=== PATIENT | female | born 1940 ===

== ENCOUNTER 2024-11-26 08:46 | Outpatient (AMB) | payer OTHER, SELFPAY ==
--- NOTE | 2024-11-26 09:06 | MHC.OFFVIS ---
Intake Visit Reasons: 6 month AD Accompanied by: Spouse Allergies Penicillins Allergy (Unknown, Verified 11/26/24 09:07) Unknown Medication List - Last Reconciled 11/26/24 by Brittany Kapadia CNP atorvastatin 40 mg PO DAILY bimatoprost 0.01% (Lumigan) 1 drp ophthalmic (eye) BEDTIME brimonidine 0.1% 1 drp ophthalmic (eye) BID celecoxib 200 mg PO DAILY PRN cetirizine 10 mg PO QPM donepezil 10 mg PO BEDTIME dorzolamide-timolol 22.3-6.8 mg/mL 1 drp ophthalmic (eye) BID dulaglutide (Trulicity) 1.5 mg subcut QWEEK fluticasone propionate 50 mcg/actuation 2 sprays intranasal BEDTIME latanoprostene bunod 0.024% (Vyzulta) 1 drp ophthalmic (eye) BEDTIME metoprolol tartrate 100 mg PO BID nifedipine ER 60 mg PO DAILY HPI Comments Details: She was doing okay. Her noted that she was more forgetful, forgetting where things are in the house. She says her memory comes and goes. She was still doing all the pantry cook, like cooking and cleaning. Sleep was okay. Going for walks, no falls. Her medications were organized by her . She reports deterioration in her memory since around 2021, where she repeats herself and asks the same questions over and over again, and does not keep track of time. Has trouble with bills starting around 2023. She was aware of her memory loss, but still functions fairly well at home doing her pantry cook, cooking and cleaning. She never drove. She has a high school education, but did not go to college. 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 She has been since 1965 and have two adopted sons. [facility] Medical History (Updated 11/26/24 @ 09:12 by Brittany Kapadia CNP) Blindness of right eye Surgical History (Updated 11/26/24 @ 09:13 by rBittany Kapadia CNP) LAP-BAND surgery status Review of Systems Const Denies chills, Denies daytime sleepiness, Denies difficulty sleeping, Denies fatigue, Denies fever(s), Denies frequent falls, Denies headache(s), Denies increased appetite, Denies poor appetite, Denies snoring, Denies weakness, Denies weight gain and Denies weight loss Eyes Denies loss of vision ENT Denies vertigo, Denies dizziness, Denies headache(s) and Denies neck pain Card Denies chest pain at rest, Denies chest pain with activity, Denies syncope, Denies leg edema, Denies palpitations, Denies dyspnea and Denies dyspnea on exertion Resp Denies cough, Denies dyspnea, Denies dyspnea on exertion and Denies snoring GI Denies abdominal pain, Denies constipation, Denies heartburn, Denies diarrhea and Denies nausea Denies urinary frequency, Denies urinary incontinence and Denies urinary urgency Musc Reports abnormal gait (balance difficulty), Denies back pain, Denies myalgias, Denies arthralgias, Denies neck pain, Denies numbness and Denies tingling Neuro Reports abnormal gait (balance difficulty), Denies vertigo, Denies dizziness, Denies syncope, Denies frequent falls, Denies headache(s), Denies lack of coordination, Denies loss of vision, Reports memory loss, Denies numbness, Denies Other visual disturbances, Denies restless legs, Denies seizure-like activity, Denies tingling, Denies paresthesias, Denies tremor(s) and Denies weakness Psych Denies anxiety, Denies depression, Denies auditory hallucinations, Reports memory loss and Denies visual hallucinations Endo Denies fatigue and Denies palpitations Physical Exam Const Other: General Appearance:? normal, in no acute distress. Heart:? S1, S2 normal, no murmurs. Lungs:? clear anteriorly and posteriorly. Musculoskeletal:? normal. Extremities:? no edema. Psych:? alert, as below. Neuro Other: Abnormal Neurological Findings:?MMSE 19/30. Blind in R eye. Mental Status: alert, as below. Cranial Nerves: Pupils are equal, round, and reactive to light. External ocular muscles are intact. Visual brar are full, no ptosis. Face is symmetrical, no facial weakness or droop. Facial sensations are normal. Tongue protrudes in midline. Palate elevates symmetrically. Shoulder shrugging is normal Motor Examination: Normal muscle tone, bulk and strength. No atrophy or fasciculations. No drift of the extended upper extremities. DTR 2+. Plantars are flexor. Sensory Exam: Normal light touch, temperature, pinprick, vibration, and joint-position sensations. Rhomberg sign is absent. Coordination: No ataxia. No titubation. Gait Exam: Within normal limits. Cerebellar Signs: Hukakk-to-[id number] is okay. Extrapyramidal System: No tremor, rigidity with normal facial expressions. No bradykinesia. No bradyphrenia. Normal arm swing and posture. No propulsion or retropulsion. Speech: Normal. MMSE Level of Consciousness: Alert. Orientation: Knows correct day and season. Does not know year, month, or date. Knows correct city and state. Does not know county. Knows correct location and floor. Registration: Able to register 3 objects. Attention: Unable to do serial 7's. Recall: Able to recall 0 out of 3 objects. Language: Normal spontaneous speech, fluency, repetition, naming, comprehension, reading, and writing. Total Score: 19/30. Results Reviewed Results Reviewed: CT Brain 08/2023: Mild to mod cerebral volume loss EEG 08/2023: WNL Labs normal except borderline TSH of 5.3 Assessment & Plan Assessment & Plan (1) Alzheimer dementia: Code(s): G30.9 - Alzheimer's disease, unspecified; F02.80 - Dementia in other diseases classified elsewhere, unspecified severity, without behavioral disturbance, psychotic disturbance, mood disturbance, and anxiety Category: Medical Qualifiers: Alzheimer's disease onset: unspecified onset Dementia severity: unspecified severity Dementia behavioral or psychological symptom: unspecified whether behavioral, psychotic, or mood disturbance or anxiety Qualified Code(s): G30.9 - Alzheimer's disease, unspecified; F02.80 - Dementia in other diseases classified elsewhere, unspecified severity, without behavioral disturbance, psychotic disturbance, mood disturbance, and anxiety Plan: Continue donepezil 10mg 1 tablet at bedtime. Start memantine 5mg 1 tablet twice a day, use/side effects reviewed. Stay physically and socially active. Medications: New donepezil 10 mg PO BEDTIME 90 tabs 1RF 90 days memantine (Namenda) 5 mg PO BID 180 tabs 0RF 90 days Coding Level of Care Code Est Pt Level 4 (71269) Diagnoses Alzheimer's dementia, unspecified dementia severity, unspecified timing of dementia onset, unspecified whether behavioral, psychotic, or mood disturbance or anxiety G30.9; F02.80 Alzheimer's disease onset: unspecified onset Dementia severity: unspecified severity Dementia behavioral or psychological symptom: unspecified whether behavioral, psychotic, or mood disturbance or anxiety
--- OUTSIDE RECORDS SUMMARY | 2024-11-26 10:09 | XMS_ITS | Clinical Summary ---
Author Organization [facility] Address [address] [place] [address] Care Team Providers Care Director Of Community Life Name Role Phone Sallie Sanchez Primary Care Provider Allergies No known active allergies Medications Medication Sig Dispensed Refills Start Date End Date Status atorvastatin (LIPITOR) tablet 80 mg Take 80 mg by mouth daily. 0 01/26/2021 Active Alphagan P 0.1 % SOLN INSTILL 1 DROP INTO BOTH EYES TWICE DAILY DIRECTED 0 01/17/2021 Active Calcium Carbonate 1500 (600 Ca) MG TABS Take 1 tablet by mouth 2 (two) times a day with meals. 0 02/17/2021 Active Cholecalciferol (Vitamin D3) 50 MCG (2000 UT) capsule Take by mouth daily. 0 01/26/2021 Active Diclofenac Sodium 1 % GEL APPLY 4 GRAMS TOPICALLY TO THE AFFECTED AREA TWICE DAILY 0 12/16/2020 Active dorzolamide-timolol (COSOPT) 22.3-6.8 MG/ML ophthalmic solution INSTILL 1 DROP INTO BOTH EYES TWICE DAILY DIRECTED 0 02/13/2021 Active Trulicity 0.75 MG/0.5ML subcutaneous pen-injector ADMINISTER 0.75 MG UNDER THE SKIN EVERY 7 DAYS 0 01/26/2021 Active Xelpros 0.005 % EMUL INSTILL 1 DROP DAILY IN EACH EYE AT BEDTIME DIRECTED 0 01/05/2021 Active metoprolol tartrate (LOPRESSOR) 100 MG tablet Take 100 mg by mouth 2 (two) times a day. 0 01/26/2021 Active loratadine (CLARITIN) 10 MG tablet Take 10 mg by mouth daily. 0 02/08/2021 Active NIFEdipine ER (ADALAT CC) 60 MG 24 hr tablet 0 12/20/2020 Active warfarin (COUMADIN) 2.5 MG tablet 0 12/08/2020 Active Active Problems Problem Noted Date Diagnosed Date Anemia, unspecified 03/05/2021 Chronic kidney disease, stage IV (severe) 2020 Asthma Atrial fibrillation Glaucoma Osteoarthritis Hypertension Type 2 diabetes mellitus Vitamin D deficiency Family History Medical History Relation Name Comments Diabetes Brother Cancer Father Cancer Sister Diabetes Sister Stroke Sister Relation Name Status Comments Brother Father Sister Social History Tobacco Use Types Packs/Day Years Used Date Smoking Tobacco: Former Cigarettes Q uit: 1995 Smokeless Tobacco: Never Alcohol Use Standard Drinks/Week Comments Yes 0 (1 standard drink = 0.6 oz pur e alcohol) occasional Sex and Gender Information Value Date Recorded Sex Assigned at Not on file Gender Identity Not on file Sexual Orientation Not on file Last Filed Vital Signs Vital Sign Reading Time Taken Comments Blood Pressure 106/61 04/16/2021 9:50 AM EST Pulse 84 04/16/2021 9:50 AM EST Temperature 36.5 C (97.7 F) 04/16/2021 9:50 AM EST Respiratory Rate - - Oxygen Saturation 100% 04/16/2021 9:50 AM EST Inhaled Oxygen Concentration - - Weight 64.7 kg (142 lb 9.6 oz) 04/16/2021 9:50 A M EST Height 152.4 cm (5') 04/16/2021 9:50 AM EST Body Mass Index 27.85 04/16/2021 9:50 AM EST Plan of Treatment Health Maintenance Due Date Last Done Comments COVID-19 Vaccine (#1) 1941 Pneumococcal Vaccine (1 of 2 - PCV) 1947 Depression Screening 1953 Preventative Health Evaluation 1959 DTap / Tdap / Td (1 - Tdap) 1960 Shingrix-Zoster Vaccine (1 of 2) 1991 Fall Risk Assessment 2006 Osteoporosis Screening (DEXA Scan) 2006 RSV Adult > 60+ Yrs or Pregn ant (1 - 1-dose 75+ series) 2016 Influenza Vaccine (#1) 2024 Hepatitis B Vaccines Aged Out No long er eligible based on patient's age to complete this topic RSV Ped < 20 months Aged Out No longe r eligible based on patient's age to complete this topic Care Teams Director Of Community Life Relationship Specialty Start Date End Date Sallie Sanchez [address] [place] [id number] PCP - General Internal Medicine 03/05/21
--- OUTSIDE RECORDS SUMMARY | 2024-11-26 10:09 | XMS_ITS | Clinical Summary ---
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 4 Active BIMATOPROST OPHT Administer into affected eye(s). Active diclofenac (VOLTAREN) 1 % topical gel Apply 1 Squirt topically 2 (two) times a day. 3 Active dorzolamide HCl/timolol maleat (DORZOLAMIDE-TI MOLOL OPHT) Administer into affected eye(s). Active fluticasone propionate (FLONASE) 50 mcg/actuation nasal spray Administer 2 sprays into each nostril 1 (one) time each day if needed. 4 Active pen needle, diabetic 32 gauge x 5/32 needle 1 each by Other route 1 (one) time per week. with ozempic. 0 Active ketotifen (ZADITOR) 0.025 % ophthalmic solution Administer 1 drop into affected eye(s) 4 (four) times a day if needed. (allergy). - 4 Active omeprazole (PriLOSEC) [address] capsule Take 1 capsule (20 mg total) by mouth 1 (one) time each day. 3 Active dulaglutide (Trulicity) 0.75 mg/0.5 mL pen injector injection Inject 0.5 mL (0.75 mg total) under the skin 1 (one) time per week. 1 Active dulaglutide (Trulicity) 0.75 mg/0.5 mL pen injector injection Inject 0.5 mL (0.75 mg total) under the skin every 7 (seven) days. 4 Active atorvastatin (LIPITOR) 40 mg tablet TAKE 1 TABLET BY MOUTH DAILY 30 tablet 1 5 Active metoprolol tartrate (LOPRESSOR) 100 mg tablet TAKE 1 TABLET BY MOUTH TWICE DAILY 180 tablet 1 5 Active NIFEdipine CC (ADALAT CC) 60 mg 24 hr tablet TAKE 1 TABLET BY MOUTH DAILY 90 tablet 1 5 Active calcium carbonate 1,500 mg (600 mg elemental calcium) tablet TAKE 1 TABLET BY MOUTH TWICE DAILY 180 tablet 1 5 Active Allergy Relief, fexofenadine, 180 mg tablet TAKE 1 TABLET BY MOUTH NEEDED 90 tablet 1 5 Active Active Problems Problem Noted Date Diagnosed Date Osteoarthritis 12/06/2023 Type 2 diabetes mellitus wit h cataract ([facility] V24, [facility] V28) 12/06/2023 Type 2 diabetes mellitus wit h renal manifestations ([facility] V24, [facility] V28) 12/06/2023 Nonrheumatic aortic valve stenosis 01/11/2023 Albuminuria 07/31/2019 Hyperlipidemia 05/07/2019 Microalbuminuria 05/07/2019 Osteoporosis 05/07/2019 B12 deficiency 04/03/2018 Anemia 03/29/2018 Asthma 03/29/2018 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 CKD (chronic kidney disease) stage 4, GFR 15-29 ml/min ([facility] V24, [facility] V28) 03/29/2018 Overview (12/06/2023): Follows with Renal Depression 03/29/2018 Glaucoma 03/29/2018 Overview (12/06/2023): Dr Montero Hypertension 03/29/2018 Osteoarthritis of multiple joints 03/29/2018 Overweight 03/29/2018 Paroxysmal atrial fibrillation ([facility] V24, [facility] V28) 03/29/2018 Overview (12/06/2023): S/p ablation; Coumadin Type 2 diabetes mellitus ([facility] V24, [facility] V 28) 03/29/2018 Vitamin D deficiency 03/29/2018 Encounters Date Type Department Care Team Description 09/25/2024 Telephone Internal Medicine - [address] [place] [address] Karen Bryson MD from Last 3 Months Surgical History Surgery Date Site/Laterality Comments CHOLECYSTECTOMY PROCEDURE: HISTORICAL CHOLECYSTECTOMY HYSTERECTOMY PROCEDURE: HISTORICAL HYSTERECTOMY OTHER SURGICAL HISTORY PROCEDURE: HISTORY OTHER; COMMENT: ovarian cyst APPENDECTOMY PROCEDURE: HISTORICAL APPENDECTOMY EYE SURGERY PROCEDURE: HISTORICAL EYE SURGERY OTHER SURGICAL HISTORY PROCEDURE: HISTORY OTHER; COMMENT: RF Ablation COLONOSCOPY 06/30/2015 PROCEDURE: HISTORICAL COLONOSCOPY LAPAROSCOPIC GASTRIC BANDING PROCEDURE: LAP ADJUSTABLE GASTRIC BAND OTHER SURGICAL HISTORY PROCEDURE: ME LAPAROSCOPY W/LYSIS OF ADHESIONS; COMMENT: 11/27/20 for SBO APPENDECTOMY PROCEDURE: ME APPENDECTOMY CHOLECYSTECTOMY PROCEDURE: ME LAPAROSCOPY SURG CHOLECYSTECTOMY Medical History Medical History Date Comments Anemia 03/29/2018 DX:Anemia Asthma 03/29/2018 DX:Asthma Atrial fibrillation ([facility] V24, [facility] V28) 03/29/2018 DX:Atrial fibrillation ([facility]) ; COMMENT: Coumadin 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 DX:Blind right e ye CKD (chronic kidney disease) stage 4, GFR 15-29 ml/min ([facility] V24, [facility] V28) 03/29/2018 DX:CKD (chronic kidney disea se) stage 4, GFR 15-29 ml/min ([facility]); COMMENT: Follows with Renal Depression 03/29/2018 DX:Depression Dermatophytosis of nail 03/29/2018 DX:[place] tophytosis of nail; COMMENT: [facility] Glaucoma 03/29/2018 DX:Glaucoma; COM MENT: Dr Montero Heart murmur 03/29/2018 DX:Heart murmur; COMMENT: ll/Vl systolic History of laparoscopic adju stable gastric banding 03/29/2018 DX:History of laparoscopic a djustable gastric banding Hypertension 03/29/2018 DX:Hypertension Morbid obesity with BMI of 4 0.0-44.9, adult ([facility] V24, [facility] V28) 03/29/2018 DX:Morbid obesity wit h BMI of 40.0-44.9, adult ([facility]) Osteoarthritis 03/29/2018 DX:Osteoarthriti s Type 2 diabetes mellitus wit h cataract ([facility] V24, [facility] V28) 03/29/2018 DX:Type 2 diabetes mellitus with cataract ([facility]); COMMENT: Scheduled for cataract surgery - left eye - 04/21/17 Dr Monteor Type 2 diabetes mellitus wit h renal manifestations ([facility] V24, [facility] V28) 03/29/2018 DX:Type 2 diabetes mellitus with renal manifestations ([facility]) Vitamin D deficiency 03/29/2018 DX:Vitamin D deficiency SBO (small bowel obstruction ) ([facility] V24, [facility] V28) DX:SBO (small bowel obstruct ion) ([facility]) Family History Medical History Relation Name Comments Diabetes Brother Lung cancer Father arthritis Arthritis Mother Diabetes Sister 1 Breast Cancer, CKD/Dialysis Diabetes Sister 2 Stroke Sister 2 Relation Name Status Comments Brother Father Mother Sister 1 Sister 2 Alive Social History Tobacco Use Types Packs/Day Years Used Date Smoking Tobacco: Former Cigarettes Q uit: 03/07/1995 Smokeless Tobacco: Never Alcohol Use Standard Drinks/Week Comments Not Currently 0 (1 standard drink = 0.6 oz pur e alcohol) Comments Unknown Sex and Gender Information Value Date Recorded Sex Assigned at Female 03/17/2024 4:10 PM EST Legal Sex Female 3:48 PM EST Gender Identity Female 03/17/2024 4:10 PM EST Sexual Orientation Not on file Obstetrics History Last Filed Vital Signs Vital Sign Reading Time Taken Comments Blood Pressure 163/91 03/17/2024 6:45 PM EST Pulse 81 03/17/2024 6:45 PM EST Temperature 36.3 C (97.3 F) 03/17/2024 1:58 PM EST Respiratory Rate 16 03/17/2024 6:45 PM EST Oxygen Saturation 98% 03/17/2024 7:31 PM EST Inhaled Oxygen Concentration - - Weight 59 kg (130 lb) 07/12/2023 4:06 PM EDT Height 152.4 cm (5') 07/12/2023 4:06 PM EDT Body Mass Index 25.39 07/12/2023 4:06 PM EDT Plan of Treatment Health Maintenance Due Date Last Done Comments RSV Immunization Adult Patients (1 - 1-dose 75+ series) 2016 Falls Risk Assessment 02/12/2022 Medicare Annual Wellness Visit 02/12/2022 Social Influencers of Health Screening 02/12/2022 Diabetes: Annual Urine Albumin-Creatinine Ratio (uACR) 08/25/2023 08/24/2022 Diabetes: Blood Sugar Control Test (HGBA1C) 11/17/2023 05/17/2023 Depression Screening 03/07/2024 Diabetes: Annual Retina Eye Exam 04/11/2024 04/11/2023 Diabetes: Annual Foot Exam 05/16/2024 05/17/2023 COVID-19 Vaccine (6 - Pfizer risk season) 2024 01/25/2024, 09/09/2021, 03/10/2021, Additional history exists Influenza Vaccine (#1) 2024 , 01/14/2021, 11/16/2019, Additional history exists Diabetes: Annual GFR (Glomerular Filtration Rate) 03/17/2025 03/17/2024, 08/24/2022 Hypertension/CHF/CAD Annual BMP Blood Test 03/17/2025 03/17/2024, 08/24/2022 DTaP,Tdap,and Td Vaccines (4 - Td or Tdap) 11/07/2026 11/07/2016, 09/06/2011, 04/05/2001 Cholesterol Screening (Lipid Panel) 05/16/2028 05/17/2023, 08/24/2022 Osteoporosis Screening (Bone Density Screening) 07/03/2033 07/04/2023, 07/01/2023, 04/27/2019 Pneumococcal Vaccine: 50+ Years Completed 08/29/2014, 06/22/2007, 04/05/2001 Zoster Vaccines Completed 03/02/2020, 12/06, 03/25/2015 HIB Vaccines Aged Out No longer eligi ble based on patient's age to complete this topic HPV Vaccines Aged Out No longer eligi ble based on patient's age to complete this topic Hepatitis A Vaccines Aged Out No long er eligible based on patient's age to complete this topic Hepatitis B Vaccines Aged Out No long er eligible based on patient's age to complete this topic IPV Vaccines Aged Out No longer eligi ble based on patient's age to complete this topic MMR Vaccines Aged Out No longer eligi ble based on patient's age to complete this topic Meningococcal ACWY Vaccine Aged Out N o longer eligible based on patient's age to complete this topic Meningococcal B Vaccine Aged Out No l onger eligible based on patient's age to complete this topic RSV Immunization Patients Under 20 months Aged Out No longer eligible based on patient's age to complete this topic Varicella Vaccines Aged Out No longer eligible based on patient's age to complete this topic Procedures Procedure Name Priority Date/Time Associated Diagnosis Comments BASIC METABOLIC PANEL STAT 03/17/2024 3:35 PM EST [facility] DEXA AXIAL SKELETON Routine 07/04/2023 7:43 AM EDT Encounter for screening for osteoporosis HEMOGLOBIN A1C Routine 05/17/2023 LIPID PANEL Routine 05/17/2023 DIABETES FOOT EXAM Routine 05/17/2023 DIABETES EYE EXAM Routine 04/11/2023 URINE ALBUMIN CREATININE RATIO Routine 08/24/2022 from Last 3 Months or Most Recently Relevant to Health Maintenance Results * (ABNORMAL) Basic metabolic panel (03/17/2024 3:35 PM EST) Sodium 139 133 - 145 mmol/L LAB CHEMISTRY METHOD 03/17/2024 4:[address] [facility] Potassium 3.3(L) 3.5 - 5.5 mmol/L LAB CHEMISTRY METHOD 03/17/2024 4:[address] [facility] Chloride 107 96 - 110 mmol/L LAB CHEMISTRY METHOD 03/17/2024 4:[address] [facility] CO2 25 21 - 32 mmol/L LAB CHEMISTRY METHOD 03/17/2024 4:14 PM [facility] Anion Gap 7 3 - 11 LAB CHEMISTRY METHOD 03/17/2024 4:14 PM [facility] Glucose 317(H) 70 - 100 mg/dL LAB CHEMISTRY METHOD 03/17/2024 4:14 PM [facility] BUN 22 5 - 25 mg/dL LAB CHEMISTRY METHOD 03/17/2024 4:14 PM [facility] Creatinine 2.16(H) 0.50 - 1.10 mg/dL LAB CHEMISTRY METHOD 03/17/2024 4:14 PM [facility] eGFR 22(L) >=60 mL/min/1. 73m2 LAB CHEMISTRY METHOD 03/17/2024 4:14 PM [facility] Comment:Calculation based on the Chronic Kidney Disease Epidemiology Collaboration (CKD-EPI) equation refit without adjustment for race. BUN/Creatinine Ratio 10.2 LAB CHEMISTRY METHOD 03/17/2024 4:14 PM [facility] Calcium 9.2 8.5 - 10.5 mg/dL LAB CHEMISTRY METHOD 03/17/2024 4:14 PM [facility] Blood Venous blood specimen / Unknown Venipuncture / Unknown 03/17/2024 3:35 PM EST 03/17/2024 3:49 PM EST us Sarmad Colon MD LAB BLOOD ORDERABLES Final Resu lt [facility] [address] [place] [address], * CAT DEXA AXIAL SKELETON (07/04/2023 7:43 AM EDT) Anatomical Region Laterality Modality Mammography 07/01/2023 12:3 5 PM EDT Narrative 07/04/2023 7:43 AM EDT [facility] Diagnostic Imaging Department [address] [place] [address] Patient: MARKIE GALLARDO /Age/Sex: 1940 - 83 - F Unit#: [id number] [facility] Mn[facility]onic/Ordering Site: [facility] Ordering Physician: KAREN BRYSON Cat Dexa Axial Skeleton - 07/01/23 - 1331 Report Status:Signed HISTORY: The patient is an 83-year-old postmenopausal female with clinical concern for metabolic bone disease. FINDINGS: Dual energy x-ray absorptiometry of the lumbar spine and femurs is performed. The mean bone mineral density at L1-3 is 0.759 gm/cm2 which is 65% of that of young normals and 76% of that of age matched controls. This yields a T- score of -3.4 and a Z-score of -2.0 which is diagnostic of osteoporosis. The mean bone mineral density of the femurs bilaterally is 0.519 gm/cm2 which is 51% of that of young normals and 61% of that of age matched controls. This yields a T-score of -3.9 and a Z-score of -2.6 which is diagnostic of osteoporosis. IMPRESSION: 1. Osteoporosis. 2. FRAX analysis yields a 10-year probability of major osteoporotic fracture of 43.5% and a 10-year probability of hip fracture of 21.2%. Code 38720 Dictating Physician: JENNIFER DAVID MD Electronically Signed by: JENNIFER DAVID MD Dic Date/Time: 07/04/23 0742 Sign date/Time: 07/04/2343 Procedure Note Jennifer David MD - 10/24/2023 [facility] Diagnostic Imaging Department [address] [place] [id number] Patient: MARKIE GALLARDO SONG /Age/Sex: 1940 - 83 -F Unit#: [id number] Location/Status: [facility]/REG CLI Mnemonic/Ordering [facility] Ordering Physician: KAREN BRYSON Cat Dexa Axial Skeleton - 07/01/23 - 1 Report Status:Signed HISTORY: The patient is an 83-year-old postmenopausal female withclinical concern for metabolic bone disease. FINDINGS: Dual energy x-ray absorptiometry of the lumbar spine and femursis performed. The mean bone mineral density at L1-3 is 0.759 gm/cm2 which is65% of that of young normals and 76% of that of age matched controls. This yieldsa T- score of -3.4 and a Z-score of -2.0 which is diagnostic of osteoporosis. The mean bone mineral density of the femurs bilaterally is 0.519 gm/uf2jchgz is 51% of that of young normals and 61% of that of age matched controls.This yields a T-score of -3.9 and a Z-score of -2.6 which is diagnostic of osteoporosis. IMPRESSION: 1. Osteoporosis. 2. FRAX analysis yields a 10-year probability of major osteoporoticfracture of 43.5% and a 10-year probability of hip fracture of 21.2%. Code 76063 Dictating Physician: JENNIFER DAVID MD Electronically Signed by: JENNIFER DAVID MD Dic Date/Time: 07/04/23 0742 Sign date/Time: 07/04/23 0743 Result [facility] Karen Bryson MD IMG BI PROCEDURES Final Result * Diabetes Foot Exam (05/17/2023) [facility] Diabetes: Annual Foot Exam abstracted Result [facility] Provider HEALTH MAINTENANCE Final Result * (ABNORMAL) Hemoglobin A1c (05/17/2023) [facility] Hemoglobin A1C 7.7(A) <=6.5 % Blood Venous blood specimen / Unknown Result [facility] Provider LAB BLOOD ORDERABLES Robina l Result * Lipid panel (05/17/2023) [facility] LDL/HDL Ratio 2 0 - 4 Triglycerides 76 0 - 150 mg/dL HDL 40 >=40 mg/dL LDL Cholesterol 36 0 - 100 mg/dL Blood Venous blood specimen / Unknown Result [facility] Provider LAB BLOOD ORDERABLES Robina l Result * Diabetes Eye Exam (04/11/2023) [facility] Diabetes: Annual Retina Eye Exam abstracted Result [facility] Provider HEALTH MAINTENANCE Final Result * Urine Albumin Creatinine Ratio (08/24/2022) [facility] Urine Albumin Creatinine Ratio abstracted Result [facility] Provider HEALTH MAINTENANCE Final Result from Last 3 Months or Most Recently Relevant to Health Maintenance Insurance [employer] MEDICARE Advance Directives Documents on File Type Date Recorded 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
== END 2024-11-26 09:35 | disposition home or self-care (01) ==
LOC: HO.HSM 08:47
PROVIDERS: PCP Student in an Organized Health Care Education/Training Program; Referring Provider Student in an Organized Health Care Education/Training Program; Visit Provider Registered Nurse
DX: G30.9 Alzheimer's disease, unspecified (principal); F02.80 Dementia in other diseases classified elsewhere, unspecified severity, without behavioral disturbance, psychotic disturbance, mood disturbance, and anxiety
CPT/HCPCS: 99214